=== PATIENT | male | born 2000 | race Caucasian/White ===

== ENCOUNTER 2020-07-03 19:26 | Emergency (ER) | payer SELFPAY ==
[~2020-07-03] VITALS: Ht 190.5 cm; Wt 104.3 kg
--- NOTE | 2020-07-03 19:40 | NUR ---
Pt in waiting room, no beds available, patient states had covid 14 days ago.
--- NOTE | 2020-07-03 19:50 | NUR ---
Dr. Sullivan in waiting room, examined the patient.
[2020-07-03] MEDS ORDERED: CEphaleXIN 500 MG CAPSULE PO ONE (22:00)
--- NOTE | 2020-07-03 22:00 | NUR ---
Patient refused jay jay wrap for his knee, patient took oral medication.
[2020-07-03] MEDS ORDERED: CEphaleXIN 500 MG CAPSULE ONE (22:02)
[2020-07-03 22:06] VITALS: BP 136/82
== END 2020-07-03 22:03 | disposition home or self-care (01) ==
LOC: ER 19:29
DX: S80.02XA Contusion of left knee, initial encounter (principal); S70.12XA Contusion of left thigh, initial encounter; V86.96XA Unspecified occupant of dirt bike or motor/cross bike injured in nontraffic accident, initial encounter; Y93.I9 Activity, other involving external motion; Y92.89 Other specified places as the place of occurrence of the external cause; Y99.8 Other external cause status; Z86.16 Personal history of COVID-19; R59.0 Localized enlarged lymph nodes
CPT/HCPCS: 76881; A4663